=== PATIENT | male | born 1960 | race Caucasian/White ===

== ENCOUNTER 2019-04-11 09:05 | Observation (INO) | payer OTHER ==
[~2019-04-11] VITALS: Ht 182.9 cm; Wt 74.2 kg
--- NOTE | 2019-04-11 09:19 | NUR ---
PATIENT ANASTASIA TO FROM [facility] FROM [facility] OFFICE FOR CHEST PAIN PAST 2 WEEKS, REPORTS CP RADIATING TO JAW/NECK PAST 3 DAYS WITH SOB AT NIGHT, DENIES CARDIAC HX. HX MENIERES DISEASE. 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 [employer] ON PATIENT, MD AT BEDSIDE, CALL LIGHT WITHIN REACH, SPOUSE AT BEDSIDE. AWAITING MD ORDERS.
[2019-04-11 10:03] LABS: BASOPHILS # (AUTO) 0.03 x10^3/uL (0-0.1); BASOPHILS % (AUTO) 0 % (0-1); EOSINOPHILS # (AUTO) 0.26 x10^3/uL (0-0.4); EOSINOPHILS % (AUTO) 4 % (1-7); LYMPHOCYTES # (AUTO) 1.53 x10^3/uL (1-3.4); LYMPHOCYTES % (AUTO) 22 % (22-44); MD NO; MEAN CORPUSCULAR HEMOGLOBIN 31.5 pg (27.5-34.5); MEAN CORPUSCULAR HGB CONC 32.8 g/dL (33.2-36.2); MEAN PLATELET VOLUME 8.2 fL (7.4-10.4); MONOCYTES # (AUTO) 0.51 x10^3/uL (0.2-0.8); MONOCYTES % (AUTO) 7 % (2-9); NEUTROPHILS # (AUTO) 4.73 x10^3/uL (1.8-6.8); NEUTROPHILS % (AUTO) 67 % (42-75); PLATELET COUNT 207 x10^3/uL (130-400); RED BLOOD COUNT 4.81 x10^6/uL (4.38-5.82); RED CELL DISTRIBUTION WIDTH 13.3 % (9.4-14.8)
[2019-04-11 10:15] LABS: ALANINE AMINOTRANSFERASE 30 U/L (12-78); ALBUMIN 3.5 g/dL (3.4-5.0); ANION GAP 4 mmol/L (5-15); CALCIUM 8.9 mg/dL (8.5-10.1); CHLORIDE 108 mmol/L (98-107); CREATININE 1.19 mg/dL (0.7-1.3)
[2019-04-11 10:18] LABS: INTERNATIONAL NORMALIZED RATIO 1.02 (0.93-1.1); PARTIAL THROMBOPLASTIN TIME 32 Seconds (25-31); PROTHROMBIN TIME 10.7 Seconds (9.6-11.5)
[2019-04-11 10:19] LABS: ALKALINE PHOSPHATASE 71 U/L (45-117); BILIRUBIN,TOTAL 0.4 mg/dL (0.2-1.0); D-DIMER < 0.19 ug/mlFEU (0.00-0.52); TOTAL PROTEIN 6.8 g/dL (6.4-8.2); TROPONIN I < 0.015 ng/mL (0.000-0.045)
--- NOTE | 2019-04-11 11:22 | NUR ---
Report called to ALISON Sparks
[2019-04-11 11:55] VITALS: BP 152/93
[2019-04-11] MEDS ORDERED: NITROGLYCERIN 0.4 MG BOTTLE (25 TABS) SL PRN (13:30)
[2019-04-11] MEDS ORDERED: LABETALOL 20 MG/4 ML IVPush PRN (13:30)
[2019-04-11] MEDS ORDERED: NITROGLYCERIN 0.4 MG/SPRAY SL PRN (13:30)
[2019-04-11] MEDS ORDERED: hydrALAzine 20 MG/ML, 1ML IVPush PRN (13:30)
[2019-04-11] MEDS ORDERED: LIDODERM 5% PATCH TD PRN (13:30)
[2019-04-11] MEDS ORDERED: ACETAMINOPHEN 325 MG TABLET PO PRN (13:30)
[2019-04-11] MEDS ORDERED: DOCUSATE 100 MG CAPSULE PO PRN (13:30)
[2019-04-11] MEDS ORDERED: GUAIFENESIN/DM 200-20MG, 10ML UDC PO PRN (13:30)
[2019-04-11] MEDS ORDERED: BACLOFEN 10 MG TABLET PO PRN (13:30)
[2019-04-11] MEDS ORDERED: ONDANSETRON ODT 4 MG PO PRN (13:30)
[2019-04-11] MEDS ORDERED: IBUPROFEN 600 MG TABLET PO PRN (13:30)
[2019-04-11 15:20] VITALS: BP 140/82
[2019-04-11 16:35] LABS: TROPONIN I < 0.015 ng/mL (0.000-0.045)
[2019-04-11 17:13] LABS: CHOL/HDL RATIO 2.8; LDL/HDL RATIO 1.5 (0.5-3.0)
[2019-04-11 17:21] LABS: HEMOGLOBIN A1C 5.5 % (4.2-6.3)
[2019-04-11] MEDS: LISINOPRIL 5 MG TABLET PO SCH (18:44)
[2019-04-11 19:02] VITALS: BP 135/81
[2019-04-11 23:00] LABS: TROPONIN I < 0.015 ng/mL (0.000-0.045)
[2019-04-12 01:32] VITALS: BP 115/73
[2019-04-12 06:19] LABS: BASOPHILS # (AUTO) 0.03 x10^3/uL (0-0.1); BASOPHILS % (AUTO) 0 % (0-1); EOSINOPHILS # (AUTO) 0.32 x10^3/uL (0-0.4); EOSINOPHILS % (AUTO) 4 % (1-7); LYMPHOCYTES # (AUTO) 1.83 x10^3/uL (1-3.4); LYMPHOCYTES % (AUTO) 23 % (22-44); MD NO; MEAN CORPUSCULAR HEMOGLOBIN 31.5 pg (27.5-34.5); MEAN CORPUSCULAR HGB CONC 32.9 g/dL (33.2-36.2); MEAN CORPUSCULAR VOLUME 95.6 fL (81-97); MEAN PLATELET VOLUME 8.2 fL (7.4-10.4); MONOCYTES # (AUTO) 0.63 x10^3/uL (0.2-0.8); MONOCYTES % (AUTO) 8 % (2-9); NEUTROPHILS # (AUTO) 5.17 x10^3/uL (1.8-6.8); NEUTROPHILS % (AUTO) 65 % (42-75); PLATELET COUNT 204 x10^3/uL (130-400); RED BLOOD COUNT 4.69 x10^6/uL (4.38-5.82); RED CELL DISTRIBUTION WIDTH 13.5 % (9.4-14.8)
[2019-04-12 06:26] LABS: ANION GAP 6 mmol/L (5-15); CALCIUM 8.6 mg/dL (8.5-10.1); CHLORIDE 109 mmol/L (98-107); CREATININE 1.25 mg/dL (0.7-1.3)
[2019-04-12 10:30] VITALS: BP 114/78
[2019-04-12] MEDS: LISINOPRIL 5 MG TABLET PO SCH (10:40)
[2019-04-12] MEDS ORDERED: LISI5TAB7 PO (11:07)
== END 2019-04-12 15:50 | disposition home or self-care (01) ==
LOC: ED 10:58 → 5SO 10:59 → INTOOBSV 10:59 → ED 11:04 → DCLOUNGE 04-12 15:45
PROVIDERS: ADMIT Internal Medicine; ATTEND Internal Medicine
DX: R07.89 Other chest pain (principal); H81.09 Meniere's disease, unspecified ear; I10 Essential (primary) hypertension; J30.2 Other seasonal allergic rhinitis; Z88.5 Allergy status to narcotic agent
CPT/HCPCS: 36415; 71045; 80048; 80053; 80061; 83036; 83735; 84484; 85025; 85379; 85610; 85730; 93005; 93017; 99284; G0378

== ENCOUNTER → 2020-11-19 | Outpatient (CLI) | payer OTHER ==
[~2020-11-19] MED LIST: LISI5TAB7 PO
== END | disposition home or self-care (01) ==
LOC: CFH 10:05
PROVIDERS: ATTEND Nurse Practitioner Family
DX: Z13.6 Encounter for screening for cardiovascular disorders (principal); R07.89 Other chest pain; I10 Essential (primary) hypertension; R06.02 Shortness of breath; Z82.49 Family history of ischemic heart disease and other diseases of the circulatory system
CPT/HCPCS: 71046; 75571

== ENCOUNTER → 2020-12-08 | Outpatient (CLI) | payer OTHER | END | disposition home or self-care (01) | LOC: CFH 09:56 | PROVIDERS: ATTEND Nurse Practitioner Family | DX: I36.1 Nonrheumatic tricuspid (valve) insufficiency (principal); I10 Essential (primary) hypertension | CPT/HCPCS: 93306 ==